=== PATIENT | female | born 1980 ===

== ENCOUNTER 2019-01-21 20:47 | Emergency (ER) | payer OTHER ==
[~2019-01-21] VITALS: Ht 167.6 cm; Wt 58.5 kg
[2019-01-21] MEDS ORDERED: PRENATABS RX T1 EACH (21:19)
== END 2019-01-22 02:12 | disposition home or self-care (01) ==
LOC: ER 20:47
DX: O03.9 Complete or unspecified spontaneous abortion without complication (principal)

== ENCOUNTER 2019-03-11 11:48 | Outpatient (CLI) | payer OTHER ==
[~2019-03-11 11:48] MED LIST: PRENATABS RX T1 EACH
== END 2019-03-11 11:55 | disposition home or self-care (01) ==
LOC: MAMO-SONO 11:48
DX: Z12.31 Encounter for screening mammogram for malignant neoplasm of breast (principal); Z87.898 Personal history of other specified conditions; N63.10 Unspecified lump in the right breast, unspecified quadrant; N63.20 Unspecified lump in the left breast, unspecified quadrant; N64.4 Mastodynia; N60.11 Diffuse cystic mastopathy of right breast

== ENCOUNTER 2020-01-28 10:18 | Inpatient (IN) | payer OTHER ==
[~2020-01-28] VITALS: Ht 167.6 cm; Wt 3.2 kg
[2020-02-17] MEDS ORDERED: OXYC1TAB9 PO (09:38)
[2020-02-17] MEDS ORDERED: KETO10TA2 PO (09:38)
== END 2020-02-17 14:02 | disposition home or self-care (01) | DRG 788 ==
LOC: OB/GYN 02-12 14:30 → SURG-SUITE 02-14 03:46 → LDR 02-14 03:46 → SURG-SUITE 02-14 18:30
PROVIDERS: ADMIT Obstetrics & Gynecology Maternal & Fetal Medicine; ATTEND Obstetrics & Gynecology Maternal & Fetal Medicine
PROC: 4A1HXFZ Monitoring of Products of Conception, Cardiac Rhythm, External Approach (ICD-10-PCS; 2020-02-14)
PROC: 10907ZC Drainage of Amniotic Fluid, Therapeutic from Products of Conception, Via Natural or Artificial Opening (ICD-10-PCS; 2020-02-14)
PROC: 3E033VJ Introduction of Other Hormone into Peripheral Vein, Percutaneous Approach (ICD-10-PCS; 2020-02-14)
PROC: 10D00Z1 Extraction of Products of Conception, Low, Open Approach (ICD-10-PCS; principal; 2020-02-14 17:00)
DX: O65.4 Obstructed labor due to fetopelvic disproportion, unspecified (principal); O99.824 Streptococcus B carrier state complicating childbirth; Z3A.40 40 weeks gestation of pregnancy; Z37.0 Single live birth; Z20.828 Contact with and (suspected) exposure to other viral communicable diseases

== ENCOUNTER 2020-02-12 08:53 | Outpatient (CLI) | payer OTHER | END 2020-02-12 09:44 | disposition home or self-care (01) | LOC: NST 08:53 | PROVIDERS: ATTEND Obstetrics & Gynecology Maternal & Fetal Medicine | DX: Z34.83 Encounter for supervision of other normal pregnancy, third trimester (principal) ==

== ENCOUNTER 2021-02-03 10:30 | Outpatient (CLI) | payer OTHER ==
[~2021-02-03 10:30] MED LIST changes: +KETO10TA2 PO; +OXYC1TAB9 PO
== END 2021-02-03 15:50 | disposition home or self-care (01) ==
LOC: MAMO-SONO 10:30
PROVIDERS: ATTEND Obstetrics & Gynecology Maternal & Fetal Medicine
DX: N60.12 Diffuse cystic mastopathy of left breast (principal); Z12.31 Encounter for screening mammogram for malignant neoplasm of breast; N64.4 Mastodynia; N60.11 Diffuse cystic mastopathy of right breast; Z80.8 Family history of malignant neoplasm of other organs or systems

== ENCOUNTER 2022-02-16 12:54 | Outpatient (CLI) | payer OTHER | END 2022-02-16 14:02 | disposition home or self-care (01) | LOC: NST 12:54 | PROVIDERS: ATTEND Obstetrics & Gynecology Maternal & Fetal Medicine | DX: Z34.83 Encounter for supervision of other normal pregnancy, third trimester (principal) ==

== ENCOUNTER 2022-02-26 08:15 | Inpatient (IN) | payer OTHER ==
[~2022-02-26] VITALS: Ht 167.6 cm; Wt 2.7 kg
[2022-03-05] MEDS ORDERED: KETO10TA2 PO (07:47)
[2022-03-05] MEDS ORDERED: OXYC1TAB9 PO (07:47)
== END 2022-03-05 10:08 | disposition home or self-care (01) | DRG 788 ==
LOC: OB/GYN 02-28 08:15 → O/R 03-02 13:00 → OB/GYN 03-02 20:21
PROVIDERS: ADMIT Obstetrics & Gynecology; ATTEND Obstetrics & Gynecology
PROC: 4A1HXCZ Monitoring of Products of Conception, Cardiac Rate, External Approach (ICD-10-PCS; 2022-03-02)
PROC: 10D00Z1 Extraction of Products of Conception, Low, Open Approach (ICD-10-PCS; principal; 2022-03-02 08:45)
DX: O34.211 Maternal care for low transverse scar from previous cesarean delivery (principal); Z3A.39 39 weeks gestation of pregnancy; Z37.0 Single live birth; Z20.822 Contact with and (suspected) exposure to COVID-19

== ENCOUNTER 2022-02-26 10:34 | Outpatient (CLI) | payer OTHER | END 2022-02-26 11:21 | disposition home or self-care (01) | LOC: NST 10:34 | PROVIDERS: ATTEND Obstetrics & Gynecology | DX: Z34.83 Encounter for supervision of other normal pregnancy, third trimester (principal) ==